=== PATIENT | female | born 1950 | race Caucasian/White ===

== ENCOUNTER 2019-02-28 15:55 | Inpatient (IN) ==
[2019-02-28 17:17] LABS: INR 0.9; Prothrombin Time 10.1 Seconds (9.4-12.1)
[2019-02-28 17:18] LABS: Hematocrit 40.6 % (35.3-44.9); Hemoglobin 13.9 g/dL (11.5-15.4); Mean Corpuscular HGB Conc 34.2 g/dL (31.6-35.5); Mean Corpuscular Hemoglobin 28.8 pg (28.0-33.3); Mean Corpuscular Volume 84.2 fL (83.0-100.0); Mean Platelet Volume 10.4 fL (9.4-12.4); Platelet Count 339 K/mcL (140-400); Red Blood Count 4.82 M/mcL (3.82-4.97); Red Cell Distribution Width 12.1 % (11.5-14.5); White Blood Count 8.2 K/mcL (4.3-11.1)
[2019-02-28 17:32] LABS: BUN/Creatinine Ratio 17 (6-26); Blood Urea Nitrogen 16 mg/dL (8-23); Calcium 9.9 mg/dL (8.6-10.3); Carbon Dioxide 23 mEq/L (23-29); Chloride 101 mEq/L (98-107); Glucose 90 mg/dL (70-105); Osmolality,Calculated 283 (280-300); Potassium 4.5 mEq/L (3.5-5.1); Sodium 136 mEq/L (136-145); Troponin I < 0.03 ng/mL (< 0.04); eGFR For African Americans > 60 (> 60); eGFR For Non-African Americans 59 (> 60)
[2019-02-28] MEDS ORDERED: Ondansetron 4 MG/2 ML VIAL IVP PRN (18:23)
[2019-02-28] MEDS ORDERED: Benzonatate 100 MG CAPSULE PO PRN (18:32)
[2019-02-28 23:28] LABS: Bilirubin,Urine Negative (Negative); Blood,Urine Negative (Negative); Clarity,Urine Clear (Clear); Color,Urine Yellow (Yellow); Glucose,Urine (UA) Normal (Normal); Ketones,Urine Trace mg/dL (Negative); Leukocyte Esterase,Urine Negative (Negative); Nitrite,Urine Negative (Negative); Protein,Urine Negative (Neg-Trace); Specific Gravity,Urine 1.015 (1.010-1.025); Urobilinogen,Urine Normal (Normal)
[2019-03-01 03:22] LABS: Alanine Aminotransferase 12 Units/L (7-52); Albumin 4.3 g/dL (3.5-5.7); Albumin/Globulin Ratio 1.5 (1.1-2.2); Alkaline Phosphatase 90 Units/L (34-104); Aspartate Amino Transferase 14 Units/L (13-39); BUN/Creatinine Ratio 18 (6-26); Bilirubin,Total 0.4 mg/dL (0.3-1.0); Blood Urea Nitrogen 17 mg/dL (8-23); Calcium 9.9 mg/dL (8.6-10.3); Carbon Dioxide 24 mEq/L (23-29); Chloride 101 mEq/L (98-107); Chol/HDL Ratio 3.3 (0-4.9); Cholesterol 187 mg/dL (< 200); Globulin 2.8 g/dL (2.4-3.5); Glucose 98 mg/dL (70-105); HDL Cholesterol 56 mg/dL (40-59); LDL Cholesterol,Calculated 109 mg/dL (0-99); Osmolality,Calculated 284 (280-300); Potassium 3.8 mEq/L (3.5-5.1); Sodium 136 mEq/L (136-145); Total Protein 7.1 g/dL (6.4-8.9); Triglycerides 109 mg/dL (< 150); eGFR For African Americans > 60 (> 60); eGFR For Non-African Americans 57 (> 60)
[2019-03-01] MEDS: Aspirin Enteric Coated 81 MG Tablet PO SCH (08:56)
[2019-03-01] MEDS: hydrOXYzine pamoate 25 MG CAPSULE PO SCH (08:56)
[2019-03-01] MEDS: Acetaminophen 325 MG TABLET PO PRN ×4 (08:56→22:15)
[2019-03-01] MEDS: *HR* Enoxaparin 40 MG/0.4 ML SYRINGE SQ SCH (13:58)
[2019-03-02 06:54] VITALS: BP 141/94
[2019-03-02 08:14] LABS: Estimated Average Glucose 134 mg/dl
[2019-03-02] MEDS: Acetaminophen 325 MG TABLET PO PRN ×2 (08:15→12:49)
[2019-03-02] MEDS: hydrOXYzine pamoate 25 MG CAPSULE PO SCH (09:46)
[2019-03-02] MEDS: Aspirin Enteric Coated 81 MG Tablet PO SCH (09:47)
[2019-03-02] MEDS: *HR* Enoxaparin 40 MG/0.4 ML SYRINGE SQ SCH (09:47)
== END 2019-03-02 14:49 | disposition home or self-care (01) | DRG 66 ==
LOC: 2NENU 15:55 → EMEROOARM 15:55 → OBSVTOIN 18:17 → SUATTDRO 18:17 → INTOOBSV 18:17 → 2NENU 20:31
PROVIDERS: ADMIT Internal Medicine; ATTEND Internal Medicine

== ENCOUNTER 2019-03-19 11:16 | Inpatient (IN) ==
[~2019-03-19 11:16] MED LIST: Vancomycin 1,000 MG, Sodium Chloride IRRigation 1,000 ML IR ONE
[2019-03-19] MEDS ORDERED: *HR* Propofol 200 MG/20 ML VIAL IVP ONE ×2 (11:34→15:35)
[2019-03-19] MEDS ORDERED: *HR* FentaNYL (PF) 100 MCG/2 ML VIAL ONE (11:34)
[2019-03-19] MEDS ORDERED: *HR* Succinylcholine 200 MG/10 ML VIAL IVP ONE (11:35)
[2019-03-19] MEDS ORDERED: Lidocaine HCL 4 ML Topical Solution (Laryng-O-Jet Kit Sterile Pak) TP ONE (11:35)
[2019-03-19] MEDS ORDERED: Dexamethasone 4 MG/ML VIAL ONE (11:35)
[2019-03-19] MEDS ORDERED: Lidocaine -MPF 2% 2 ML VIAL ONE (11:35)
[2019-03-19] MEDS ORDERED: Ondansetron 4 MG/2 ML VIAL ONE ×2 (11:35→15:18)
[2019-03-19] MEDS ORDERED: CeFAZolin Syr 2,000MG/20 ML 2,000 MG/20 ML SYRINGE IVPB ONE (11:36)
[2019-03-19] MEDS ORDERED: Heparin 1,000 UNITS/500 mL 500 ML ONE (11:44)
[2019-03-19] MEDS ORDERED: Ringers Solution, Lactated 1,000 ML IVC SCH (11:45)
[2019-03-19] MEDS ORDERED: *HR* Phenylephrine 10 MG/ML VIAL ONE (11:46)
[2019-03-19] MEDS ORDERED: *HR* Remifentanil 1 MG VIAL IVP ONE (11:49)
[2019-03-19] MEDS ORDERED: Bupivacaine-MPF 0.25% 10 ML VIAL ONE (12:13)
[2019-03-19] MEDS ORDERED: Protamine Sulfate 50 MG/5 ML VIAL IVP ONE (12:13)
[2019-03-19] MEDS ORDERED: Heparin 1,000 UNITS/500 mL 0 ML ONE (12:13)
[2019-03-19] MEDS ORDERED: Gabapentin 100 MG CAPSULE PO ONE (12:15)
[2019-03-19] MEDS ORDERED: Ondansetron 4 MG/2 ML VIAL IVP ONE (12:15)
[2019-03-19] MEDS ORDERED: Acetaminophen IV 1,000 MG/100 ML INFUS..BTL IVPB ONE (12:15)
[2019-03-19] MEDS ORDERED: *HR* Labetalol 20 MG/4 ML SYRINGE IVP PRN (12:15)
[2019-03-19] MEDS ORDERED: *HR* HYDROmorphone 2 MG/ML SYRINGE IVP PRN (12:15)
[2019-03-19] MEDS ORDERED: *HR* OxyCODONE Immed Rel 5 MG TABLET PO PRN ×3 (12:15→17:32)
[2019-03-19] MEDS ORDERED: Lidocaine 1% 20 ML MDV ONE (12:38)
[2019-03-19] MEDS ORDERED: Vancomycin 1,000 MG VIAL ONE (13:18)
[2019-03-19] MEDS ORDERED: *HR* Heparin 5,000 UNIT/ML VIAL ONE (13:27)
[2019-03-19] MEDS ORDERED: EPHEDrine 50 MG/ML VIAL ONE (13:36)
[2019-03-19] MEDS ORDERED: 0.9 % Sodium Chloride 1,000 ML IVC SCH ×2 (17:32)
[2019-03-19] MEDS ORDERED: *HR* HYDROcodone/Acet 5/325 mg TABLET PO PRN (17:32)
[2019-03-19] MEDS ORDERED: Ondansetron 4 MG/2 ML VIAL IVP PRN (17:32)
[2019-03-19] MEDS ORDERED: Acetaminophen 325 MG TABLET PO PRN (17:32)
[2019-03-19] MEDS ORDERED: Naloxone 0.4 MG/ML INJ IVP PRN (17:32)
[2019-03-19] MEDS: *HR* Metoprolol 5 MG/5 ML VIAL IVP SCH ×2 (19:19→23:52)
[2019-03-19] MEDS: *HR* HYDROcodone/Acet 5/325 mg TABLET PO PRN (21:30)
[2019-03-20] MEDS: *HR* Metoprolol 5 MG/5 ML VIAL IVP SCH (05:34)
[2019-03-20] MEDS: *HR* HYDROcodone/Acet 5/325 mg TABLET PO PRN ×2 (05:34→18:17)
[2019-03-20] MEDS: *HR* Heparin 5,000 UNIT/ML VIAL SQ SCH ×2 (05:34→17:23)
[2019-03-20] MEDS ORDERED: *HR* Heparin 5,000 UNIT/ML VIAL SQ SCH (06:00)
[2019-03-20] MEDS ORDERED: 0.9 % Sodium Chloride 500 ML IV ONE (08:15)
[2019-03-20 09:39] LABS: Basophils % 0.2 %; Hematocrit 31.3 % (35.3-44.9); Immature Granulocytes % 0.5 % (0-4); Lymphocytes # 1.4 K/mcL (0.6-4.6); Mean Corpuscular HGB Conc 32.9 g/dL (31.6-35.5); Mean Corpuscular Hemoglobin 28.5 pg (28.0-33.3); Mean Corpuscular Volume 86.5 fL (83.0-100.0); Mean Platelet Volume 10.4 fL (9.4-12.4); Monocytes # 1.3 K/mcL (0.0-1.3); Monocytes % 7.5 %; Platelet Count 295 K/mcL (140-400); Red Blood Count 3.62 M/mcL (3.82-4.97); Red Cell Distribution Width 12.6 % (11.5-14.5); Segmented Neutrophils % 83.8 %
[2019-03-20 09:46] LABS: VBG Ionized Calcium 1.11 mmol/L (1.15-1.35); VBG PH 7.29 pH Units (7.32-7.42)
[2019-03-20 09:51] LABS: BUN/Creatinine Ratio 22 (6-26); Blood Urea Nitrogen 16 mg/dL (8-23); Calcium 8.7 mg/dL (8.6-10.3); Carbon Dioxide 22 mEq/L (23-29); Chloride 103 mEq/L (98-107); Glucose 116 mg/dL (70-105); Magnesium 1.4 mg/dL (1.6-2.6); Osmolality,Calculated 282 (280-300); Potassium 4.7 mEq/L (3.5-5.1); Sodium 135 mEq/L (136-145); eGFR For African Americans > 60 (> 60); eGFR For Non-African Americans > 60 (> 60)
[2019-03-20] MEDS ORDERED: Calcium Chloride 1,000 MG in 0.9 % Sodium Chloride 100 ML IVPB ONE (10:04)
[2019-03-20 10:06] LABS: Hemoglobin 10.3 g/dL (11.5-15.4); Neutrophils # 14.8 K/mcL (1.6-8.9); White Blood Count 17.7 K/mcL (4.3-11.1)
[2019-03-20] MEDS ORDERED: Calcium Gluconate 1gm/50mL 1 GM/50 ML BAG IVPB ONE (10:45)
[2019-03-21] MEDS: *HR* HYDROcodone/Acet 5/325 mg TABLET PO PRN (00:24)
[2019-03-21] MEDS: *HR* Labetalol 20 MG/4 ML SYRINGE IVP PRN ×3 (00:28→20:22)
[2019-03-21] MEDS: *HR* Heparin 5,000 UNIT/ML VIAL SQ SCH (04:55)
[2019-03-21] MEDS: amLODIPine 5 MG TABLET PO SCH (13:41)
[2019-03-21] MEDS: Acetaminophen 325 MG TABLET PO PRN (15:30)
[2019-03-21] MEDS: Ondansetron 4 MG/2 ML VIAL IVP PRN (17:47)
[2019-03-21] MEDS: FISH OIL PO SCH (20:28)
[2019-03-21] MEDS: OMEGA PO SCH (20:28)
[2019-03-21] MEDS: EPA PO SCH (20:28)
[2019-03-21] MEDS: DHA PO SCH (20:28)
[2019-03-21] MEDS ORDERED: PROPRANOLOL HCL 80 MG PO SCH (21:00)
[2019-03-22] MEDS: Ondansetron 4 MG/2 ML VIAL IVP PRN (00:41)
[2019-03-22 00:45] LABS: VBG Ionized Calcium 1.17 mmol/L (1.15-1.35)
[2019-03-22 00:56] LABS: BUN/Creatinine Ratio 20 (6-26); Blood Urea Nitrogen 11 mg/dL (8-23); Calcium 9.1 mg/dL (8.6-10.3); Carbon Dioxide 27 mEq/L (23-29); Chloride 92 mEq/L (98-107); Glucose 103 mg/dL (70-105); Magnesium 1.7 mg/dL (1.6-2.6); Osmolality,Calculated 260 (280-300); Sodium 125 mEq/L (136-145); eGFR For African Americans > 60 (> 60); eGFR For Non-African Americans > 60 (> 60)
[2019-03-22 01:07] LABS: Prothrombin Time 10.9 Seconds (9.4-12.1)
[2019-03-22 01:10] LABS: Activated Partial Thrombo Time 28.2 Seconds (26.0-36.0)
[2019-03-22] MEDS: Acetaminophen 325 MG TABLET PO PRN (05:45)
[2019-03-22] MEDS ORDERED: amLODIPine 5 MG TABLET PO SCH ×2 (09:00→13:02)
[2019-03-22] MEDS ORDERED: Budesonide/Formoterol 160/4.5 1 PUFF INH IH SCH (09:00)
[2019-03-22] MEDS: Multivit/Ca/Min/Fe/FA 1 TAB TABLET PO SCH (09:44)
[2019-03-22] MEDS: hydrOXYzine pamoate 25 MG CAPSULE PO SCH (09:44)
[2019-03-22] MEDS: amLODIPine 5 MG TABLET PO SCH (09:45)
[2019-03-22] MEDS: DHA PO SCH ×2 (09:45→20:56)
[2019-03-22] MEDS: OMEGA PO SCH ×2 (09:45→20:56)
[2019-03-22] MEDS: FISH OIL PO SCH ×2 (09:45→20:56)
[2019-03-22] MEDS: EPA PO SCH ×2 (09:45→20:56)
[2019-03-22 11:55] LABS: Eosinophils % 0.8 %
[2019-03-22 11:59] LABS: Basophils % 0.3 %; Eosinophils # 0.1 K/mcL (0.0-0.6); Hematocrit 30.6 % (35.3-44.9); Hemoglobin 10.9 g/dL (11.5-15.4); Immature Granulocytes % 0.8 % (0-4); Immature Platelets 4.6 % (1.1-6.1); Lymphocytes # 1.2 K/mcL (0.6-4.6); Lymphocytes % 12.9 %; Mean Corpuscular HGB Conc 35.6 g/dL (31.6-35.5); Mean Corpuscular Hemoglobin 29.5 pg (28.0-33.3); Mean Corpuscular Volume 82.7 fL (83.0-100.0); Mean Platelet Volume 10.4 fL (9.4-12.4); Monocytes % 10.9 %; Neutrophils # 6.9 K/mcL (1.6-8.9); Platelet Count 261 K/mcL (140-400); Red Cell Distribution Width 11.9 % (11.5-14.5); Segmented Neutrophils % 74.3 %; White Blood Count 9.3 K/mcL (4.3-11.1)
[2019-03-22] MEDS: Famotidine 20 MG TABLET PO SCH ×2 (12:19→21:06)
[2019-03-22] MEDS ORDERED: Ondansetron 4 MG/2 ML VIAL IVP PRN ×2 (13:04→13:06)
[2019-03-23 06:41] VITALS: BP 166/61
[2019-03-23] MEDS: hydrOXYzine pamoate 25 MG CAPSULE PO SCH (07:32)
[2019-03-23] MEDS: amLODIPine 5 MG TABLET PO SCH (07:32)
[2019-03-23] MEDS: Famotidine 20 MG TABLET PO SCH (07:32)
[2019-03-23] MEDS: Multivit/Ca/Min/Fe/FA 1 TAB TABLET PO SCH (07:32)
[2019-03-23] MEDS: OMEGA PO SCH (07:33)
[2019-03-23] MEDS: FISH OIL PO SCH (07:33)
[2019-03-23] MEDS: DHA PO SCH (07:33)
[2019-03-23] MEDS: EPA PO SCH (07:33)
== END 2019-03-23 09:31 | disposition home health service (06) | DRG 38 ==
LOC: SAMDAY 11:16 → 2NNU 17:34
PROVIDERS: ADMIT Surgery; ATTEND Surgery

== ENCOUNTER 2019-06-24 17:35 | Inpatient (IN) ==
[2019-06-24 18:29] LABS: Basophils # 0.1 K/mcL (0.0-0.2); Eosinophils # 1.4 K/mcL (0.0-0.6); Hematocrit 40.1 % (35.3-44.9); Hemoglobin 12.6 g/dL (11.5-15.4); Immature Granulocytes % 0.7 % (0-4); Lymphocytes # 2.3 K/mcL (0.6-4.6); Lymphocytes % 23.1 %; Mean Corpuscular HGB Conc 31.4 g/dL (31.6-35.5); Mean Corpuscular Hemoglobin 26.7 pg (28.0-33.3); Mean Platelet Volume 9.9 fL (9.4-12.4); Monocytes # 0.8 K/mcL (0.0-1.3); Monocytes % 8.1 %; Neutrophils # 5.2 K/mcL (1.6-8.9); Platelet Count 408 K/mcL (140-400); Red Blood Count 4.72 M/mcL (3.82-4.97); Red Cell Distribution Width 13.2 % (11.5-14.5); Segmented Neutrophils % 53.1 %; White Blood Count 9.9 K/mcL (4.3-11.1)
[2019-06-24 18:45] LABS: BUN/Creatinine Ratio 19 (6-26); Blood Urea Nitrogen 16 mg/dL (8-23); Calcium 10.1 mg/dL (8.6-10.3); Carbon Dioxide 27 mEq/L (23-29); Chloride 100 mEq/L (98-107); Glucose 110 mg/dL (70-105); Osmolality,Calculated 286 (280-300); Potassium 3.8 mEq/L (3.5-5.1); Sodium 137 mEq/L (136-145); Troponin I < 0.03 ng/mL (< 0.04); eGFR For African Americans > 60 (> 60); eGFR For Non-African Americans > 60 (> 60)
[2019-06-24] MEDS ORDERED: Naloxone 0.4 MG/ML INJ IVP PRN (19:38)
[2019-06-24] MEDS ORDERED: NON-FORMULARY MEDICATION 1 EACH EACH (Omega-3/Dha/Epa/Fish Oil [Fish Oil 1,000 Mg Softgel] PO SCH (21:00)
[2019-06-25] MEDS: Acetaminophen 325 MG TABLET PO PRN ×3 (01:21→18:50)
[2019-06-25 05:50] LABS: Basophils # 0.1 K/mcL (0.0-0.2); Eosinophils % 9.3 %; Hematocrit 37.4 % (35.3-44.9); Hemoglobin 11.9 g/dL (11.5-15.4); Immature Granulocytes % 0.4 % (0-4); Lymphocytes # 2.5 K/mcL (0.6-4.6); Lymphocytes % 23.5 %; Mean Corpuscular HGB Conc 31.8 g/dL (31.6-35.5); Mean Corpuscular Hemoglobin 26.8 pg (28.0-33.3); Mean Corpuscular Volume 84.2 fL (83.0-100.0); Mean Platelet Volume 10.1 fL (9.4-12.4); Monocytes # 1.1 K/mcL (0.0-1.3); Platelet Count 364 K/mcL (140-400); Red Blood Count 4.44 M/mcL (3.82-4.97); Red Cell Distribution Width 13.3 % (11.5-14.5); Segmented Neutrophils % 55.8 %; White Blood Count 10.7 K/mcL (4.3-11.1)
[2019-06-25 06:11] LABS: BUN/Creatinine Ratio 20 (6-26); Blood Urea Nitrogen 17 mg/dL (8-23); Calcium 10.1 mg/dL (8.6-10.3); Carbon Dioxide 27 mEq/L (23-29); Chloride 103 mEq/L (98-107); Glucose 93 mg/dL (70-105); Osmolality,Calculated 285 (280-300); Potassium 4.1 mEq/L (3.5-5.1); Sodium 137 mEq/L (136-145); eGFR For African Americans > 60 (> 60); eGFR For Non-African Americans > 60 (> 60)
[2019-06-25] MEDS: hydrOXYzine pamoate 25 MG CAPSULE PO SCH (08:40)
[2019-06-25] MEDS: Multivit/Ca/Min/Fe/FA 1 TAB TABLET PO SCH (08:40)
[2019-06-25] MEDS: lisinopriL 10 MG TABLET PO SCH (08:40)
[2019-06-25] MEDS: Aspirin Enteric Coated 81 MG Tablet PO SCH (08:40)
[2019-06-25] MEDS ORDERED: amLODIPine 5 MG TABLET PO SCH (09:00)
[2019-06-25] MEDS: 0.9 % Sodium Chloride 1,000 ML IVC SCH (17:15)
[2019-06-25] MEDS: *HR* Heparin 5,000 UNIT/ML VIAL SQ SCH (19:17)
[2019-06-26] MEDS: Acetaminophen 325 MG TABLET PO PRN ×2 (01:07→17:11)
[2019-06-26] MEDS ORDERED: *HR* Labetalol 20 MG/4 ML SYRINGE IVP ONE (03:14)
[2019-06-26] MEDS: 0.9 % Sodium Chloride 1,000 ML IVC SCH (05:05)
[2019-06-26] MEDS: *HR* Heparin 5,000 UNIT/ML VIAL SQ SCH ×2 (05:05→17:11)
[2019-06-26] MEDS: Multivit/Ca/Min/Fe/FA 1 TAB TABLET PO SCH (08:13)
[2019-06-26] MEDS: Aspirin Enteric Coated 81 MG Tablet PO SCH (08:13)
[2019-06-26] MEDS: hydrOXYzine pamoate 25 MG CAPSULE PO SCH (08:13)
[2019-06-26] MEDS: lisinopriL 10 MG TABLET PO SCH (08:13)
[2019-06-26] MEDS ORDERED: 0.9 % Sodium Chloride 1,000 ML IVC SCH (12:00)
[2019-06-26] MEDS ORDERED: lisinopriL 10 MG TABLET PO ONE (12:09)
[2019-06-27] MEDS: *HR* Heparin 5,000 UNIT/ML VIAL SQ SCH ×2 (05:27→18:14)
[2019-06-27] MEDS: Multivit/Ca/Min/Fe/FA 1 TAB TABLET PO SCH (07:13)
[2019-06-27] MEDS: Aspirin Enteric Coated 81 MG Tablet PO SCH (07:13)
[2019-06-27] MEDS: hydrOXYzine pamoate 25 MG CAPSULE PO SCH (07:13)
[2019-06-27] MEDS: lisinopriL 20 MG TABLET PO SCH (07:14)
[2019-06-27] MEDS: Acetaminophen 325 MG TABLET PO PRN (22:22)
[2019-06-28] MEDS: *HR* Heparin 5,000 UNIT/ML VIAL SQ SCH ×2 (04:54→17:08)
[2019-06-28] MEDS: lisinopriL 20 MG TABLET PO SCH (07:56)
[2019-06-28] MEDS: Multivit/Ca/Min/Fe/FA 1 TAB TABLET PO SCH (07:56)
[2019-06-28] MEDS: hydrOXYzine pamoate 25 MG CAPSULE PO SCH (07:56)
[2019-06-28] MEDS: Aspirin Enteric Coated 81 MG Tablet PO SCH (07:56)
[2019-06-28 08:02] LABS: Hematocrit 37.8 % (35.3-44.9); Hemoglobin 12.3 g/dL (11.5-15.4); Mean Corpuscular HGB Conc 32.5 g/dL (31.6-35.5); Mean Corpuscular Hemoglobin 27.3 pg (28.0-33.3); Mean Corpuscular Volume 83.8 fL (83.0-100.0); Mean Platelet Volume 9.7 fL (9.4-12.4); Platelet Count 383 K/mcL (140-400); Red Blood Count 4.51 M/mcL (3.82-4.97); Red Cell Distribution Width 13.6 % (11.5-14.5); White Blood Count 10.8 K/mcL (4.3-11.1)
[2019-06-28] MEDS: Acetaminophen 325 MG TABLET PO PRN (15:07)
[2019-06-28 22:15] LABS: Bilirubin,Urine Negative (Negative); Blood,Urine Negative (Negative); Clarity,Urine Clear (Clear); Color,Urine Yellow (Yellow); Glucose,Urine (UA) Normal (Normal); Ketones,Urine Negative (Negative); Leukocyte Esterase,Urine Moderate (Negative); Nitrite,Urine Negative (Negative); Protein,Urine Negative (Neg-Trace); Specific Gravity,Urine 1.019 (1.010-1.025); Urobilinogen,Urine Normal (Normal)
[2019-06-28 22:16] LABS: Bacteria,Urine None Seen per hpf (None-Few); Hyaline Casts,Urine None Seen per lpf (None-Few); RBC,Urine 0-3 per hpf (0-3); Squamous Epithelial Cell,Urine Moderate per lpf (None-Few); WBC,Urine 50-100 per hpf (0-3)
[2019-06-29] MEDS: *HR* Heparin 5,000 UNIT/ML VIAL SQ SCH (04:56)
[2019-06-29] MEDS: Aspirin Enteric Coated 81 MG Tablet PO SCH (08:08)
[2019-06-29] MEDS: Multivit/Ca/Min/Fe/FA 1 TAB TABLET PO SCH (08:09)
[2019-06-29] MEDS: lisinopriL 20 MG TABLET PO SCH (08:09)
[2019-06-29] MEDS: hydrOXYzine pamoate 25 MG CAPSULE PO SCH (08:09)
[2019-06-29 11:41] VITALS: BP 115/67
== END 2019-06-29 12:54 | DRG 312 ==
LOC: 3BNU 17:35 → EMEROOARM 17:35 → SUATTDRO 19:40 → 3BNU 20:15
PROVIDERS: ADMIT Internal Medicine; ATTEND Internal Medicine

== ENCOUNTER 2019-08-15 14:09 | Inpatient (IN) ==
[2019-08-15] MEDS ORDERED: 0.9 % Sodium Chloride 1,000 ML ONE (14:29)
[2019-08-15] MEDS ORDERED: Piperacillin/Tazobactam 3.375 GM in Water for inj. (sterile) 20 ML IVP ONE (14:30)
[2019-08-15] MEDS ORDERED: Isovue-370 500 ML BOTTLE IVP ONE (14:38)
[2019-08-15] MEDS: 0.9 % Sodium Chloride 1,000 ML IVC SCH ×2 (14:41→15:37)
[2019-08-15 15:13] LABS: Prothrombin Time 11.5 Seconds (9.4-12.1)
[2019-08-15 15:16] LABS: Activated Partial Thrombo Time 25.2 Seconds (26.0-36.0)
[2019-08-15 15:18] LABS: Basophils # 0.1 K/mcL (0.0-0.2); Basophils % 0.4 %; Eosinophils # 0.4 K/mcL (0.0-0.6); Eosinophils % 1.9 %; Hematocrit 37.8 % (35.3-44.9); Hemoglobin 12.2 g/dL (11.5-15.4); Immature Granulocytes % 1.1 % (0-4); Lymphocytes # 1.4 K/mcL (0.6-4.6); Mean Corpuscular HGB Conc 32.3 g/dL (31.6-35.5); Mean Corpuscular Hemoglobin 26.6 pg (28.0-33.3); Mean Corpuscular Volume 82.4 fL (83.0-100.0); Mean Platelet Volume 10.7 fL (9.4-12.4); Monocytes # 1.8 K/mcL (0.0-1.3); Neutrophils # 16.4 K/mcL (1.6-8.9); Platelet Count 414 K/mcL (140-400); Red Blood Count 4.59 M/mcL (3.82-4.97); Segmented Neutrophils % 80.6 %; White Blood Count 20.4 K/mcL (4.3-11.1)
[2019-08-15 15:21] LABS: Alanine Aminotransferase 14 Units/L (7-52); Albumin 3.5 g/dL (3.5-5.7); Albumin/Globulin Ratio 1.2 (1.1-2.2); Alkaline Phosphatase 110 Units/L (34-104); Aspartate Amino Transferase 18 Units/L (13-39); BUN/Creatinine Ratio 30 (6-26); Bilirubin,Direct 0.1 mg/dL (0.0-0.2); Bilirubin,Indirect 0.3 mg/dL (0.0-1.0); Bilirubin,Total 0.4 mg/dL (0.3-1.0); Blood Urea Nitrogen 68 mg/dL (8-23); Calcium 9.4 mg/dL (8.6-10.3); Carbon Dioxide 24 mEq/L (23-29); Chloride 95 mEq/L (98-107); Globulin 2.9 g/dL (2.4-3.5); Glucose 117 mg/dL (70-105); Magnesium 2.2 mg/dL (1.6-2.6); Osmolality,Calculated 291 (280-300); Phosphorous 3.1 mg/dL (2.7-4.5); Potassium 3.8 mEq/L (3.5-5.1); Sodium 130 mEq/L (136-145); Total Protein 6.4 g/dL (6.4-8.9); Troponin I < 0.03 ng/mL (< 0.04); eGFR For African Americans 26 (> 60); eGFR For Non-African Americans 21 (> 60)
[2019-08-15 15:48] LABS: Platelet Estimate Increased (Normal); Reactive Lymphocytes Present (Not Present); Toxic Granulation Present (Not Present)
[2019-08-15] MEDS ORDERED: 0.9 % Sodium Chloride 1,000 ML IVC ONE (16:49)
[2019-08-15] MEDS ORDERED: Ondansetron 4 MG/2 ML VIAL IVP PRN (16:59)
[2019-08-15] MEDS ORDERED: Naloxone 0.4 MG/ML INJ IVP PRN ×2 (16:59→17:03)
[2019-08-15] MEDS ORDERED: Ringers Solution, Lactated 1,000 ML IVC SCH (17:00)
[2019-08-15] MEDS: *HR* Heparin 5,000 UNIT/ML VIAL SQ SCH (18:58)
[2019-08-15 20:18] LABS: Adenovirus F 40/41 PCR Not detected (Not detect); Astrovirus PCR Not detected (Not detect); Campylobacter by PCR Not detected (Not detect); Cryptosporidium by PCR Not detected (Not detect); Cyclospora cayetanensis PCR Not detected (Not detect); E. coli O157 by PCR Not detected (Not detect); Entamoeba histolytica PCR Not detected (Not detect); Enteroaggregative E.coli(EAEC) Not detected (Not detect); Enteropathogenic E.coli(EPEC) Not detected (Not detect); Enterotoxigenic E.coli (ETEC) Not detected (Not detect); Giardia lamblia PCR Not detected (Not detect); Norovirus GI/GII PCR Not detected (Not detect); Plesiomonas shigelloides PCR Not detected (Not detect); Rotavirus A PCR Not detected (Not detect); Salmonella PCR Not detected (Not detect); Sapovirus PCR Not detected (Not detect); Shig/EnteroinvasiveE coli EIEC Not detected (Not detect); Shigalike tox-prod E coli STEC Not detected (Not detect); Vibrio PCR Not detected (Not detect); Vibrio cholerae PCR Not detected (Not detect); Yersinia enterocolitica PCR Not detected (Not detect)
[2019-08-15 20:21] LABS: C.difficile Toxin A/B Gene PCR DETECTED (Not detect)
[2019-08-15] MEDS ORDERED: Piperacillin/Tazobactam 3.375 GM in 0.9 % Sodium Chloride Mini Bag 100 ML IVPB SCH (21:00)
[2019-08-15] MEDS ORDERED: Dextrose Gel 15 GM/37.5 ML TUBE PO ONE (23:29)
[2019-08-16] MEDS ORDERED: Dextrose Gel 15 GM/37.5 ML TUBE PO ONE ×2 (05:36→06:07)
[2019-08-16 05:45] LABS: Hematocrit 31.8 % (35.3-44.9); Mean Corpuscular HGB Conc 32.1 g/dL (31.6-35.5); Mean Corpuscular Hemoglobin 26.5 pg (28.0-33.3); Mean Corpuscular Volume 82.6 fL (83.0-100.0); Platelet Count 356 K/mcL (140-400); Red Blood Count 3.85 M/mcL (3.82-4.97); Red Cell Distribution Width 15.2 % (11.5-14.5); White Blood Count 17.9 K/mcL (4.3-11.1)
[2019-08-16 05:46] LABS: Hemoglobin 10.2 g/dL (11.5-15.4)
[2019-08-16] MEDS: *HR* Heparin 5,000 UNIT/ML VIAL SQ SCH ×2 (05:46→17:03)
[2019-08-16 06:03] LABS: Calcium 8.4 mg/dL (8.6-10.3); Magnesium 1.8 mg/dL (1.6-2.6); Phosphorous 2.4 mg/dL (2.7-4.5); Potassium 4.1 mEq/L (3.5-5.1)
[2019-08-16] MEDS ORDERED: *HR* Dextrose 50 % in Water (Syg) 50 ML SYRINGE IVP PRN (06:12)
[2019-08-16] MEDS ORDERED: D5% in Water 1,000 ML IVC PRN (06:12)
[2019-08-16] MEDS ORDERED: Ringers Solution, Lactated 1,000 ML IVC SCH (09:06)
[2019-08-16] MEDS: Piperacillin/Tazobactam 3.375 GM in 0.9 % Sodium Chloride Mini Bag 100 ML IVPB SCH ×3 (10:06→23:44)
[2019-08-16] MEDS: Vancomycin Oral Soln 125 MG/2.5 ML UDC PO SCH ×4 (11:37→21:02)
[2019-08-16] MEDS: Aspirin Enteric Coated 81 MG Tablet PO SCH (11:37)
[2019-08-16] MEDS: 0.9 % Sodium Chloride 1,000 ML IVC SCH ×2 (11:48→21:04)
[2019-08-17 04:52] LABS: Bilirubin,Urine Negative (Negative); Blood,Urine Trace (Negative); Clarity,Urine Clear (Clear); Color,Urine Yellow (Yellow); Glucose,Urine (UA) Normal (Normal); Ketones,Urine Negative (Negative); Leukocyte Esterase,Urine Negative (Negative); Nitrite,Urine Negative (Negative); PH,Urine 5.5 pH Units (5.0-8.0); Protein,Urine 30 mg/dL (Neg-Trace); Urobilinogen,Urine Normal (Normal)
[2019-08-17 04:55] LABS: Bacteria,Urine None Seen per hpf (None-Few); Hyaline Casts,Urine None Seen per lpf (None-Few); Squamous Epithelial Cell,Urine Moderate per lpf (None-Few); WBC,Urine 0-3 per hpf (0-3)
[2019-08-17] MEDS: *HR* Heparin 5,000 UNIT/ML VIAL SQ SCH ×2 (06:19→18:08)
[2019-08-17 07:26] LABS: Hematocrit 31.4 % (35.3-44.9); Hemoglobin 10.1 g/dL (11.5-15.4); Mean Corpuscular HGB Conc 32.2 g/dL (31.6-35.5); Mean Corpuscular Hemoglobin 26.6 pg (28.0-33.3); Mean Corpuscular Volume 82.6 fL (83.0-100.0); Mean Platelet Volume 10.3 fL (9.4-12.4); Platelet Count 374 K/mcL (140-400); Red Cell Distribution Width 15.3 % (11.5-14.5)
[2019-08-17 07:44] LABS: Alanine Aminotransferase 16 Units/L (7-52); Albumin 2.7 g/dL (3.5-5.7); Albumin/Globulin Ratio 1.2 (1.1-2.2); Alkaline Phosphatase 97 Units/L (34-104); Aspartate Amino Transferase 19 Units/L (13-39); BUN/Creatinine Ratio 26 (6-26); Bilirubin,Direct 0.1 mg/dL (0.0-0.2); Bilirubin,Indirect 0.4 mg/dL (0.0-1.0); Bilirubin,Total 0.5 mg/dL (0.3-1.0); Blood Urea Nitrogen 18 mg/dL (8-23); Calcium 7.8 mg/dL (8.6-10.3); Carbon Dioxide 21 mEq/L (23-29); Chloride 110 mEq/L (98-107); Globulin 2.3 g/dL (2.4-3.5); Glucose 76 mg/dL (70-105); Osmolality,Calculated 283 (280-300); Potassium 3.2 mEq/L (3.5-5.1); Sodium 136 mEq/L (136-145); eGFR For African Americans > 60 (> 60); eGFR For Non-African Americans > 60 (> 60)
[2019-08-17 08:12] LABS: Lymphocytes # 1.3 K/mcL (0.6-4.6); Monocytes # 0.9 K/mcL (0.0-1.3); Neutrophils # 19.8 K/mcL (1.6-8.9)
[2019-08-17 08:13] LABS: Platelet Estimate Normal (Normal)
[2019-08-17] MEDS: Piperacillin/Tazobactam 3.375 GM in 0.9 % Sodium Chloride Mini Bag 100 ML IVPB SCH (08:41)
[2019-08-17] MEDS: 0.9 % Sodium Chloride 1,000 ML IVC SCH (08:41)
[2019-08-17] MEDS: Aspirin Enteric Coated 81 MG Tablet PO SCH (08:42)
[2019-08-17] MEDS: Vancomycin Oral Soln 125 MG/2.5 ML UDC PO SCH ×4 (08:42→21:19)
[2019-08-17] MEDS: 0.9 % Sodium Chloride w KCl 40 MEQ/1,000 ML MLS IVC SCH (13:16)
[2019-08-17] MEDS: MetroNIDAZOLE 500 MG/100 ML 500 MG/100 ML BAG IVPB SCH ×2 (15:21→23:35)
[2019-08-18 02:29] LABS: Hemoglobin 10.1 g/dL (11.5-15.4); Mean Platelet Volume 10.2 fL (9.4-12.4); Nucleated Red Blood Cells 0.1 /100 WBC (0)
[2019-08-18 02:31] LABS: Hematocrit 30.9 % (35.3-44.9); Lymphocytes # 1.7 K/mcL (0.6-4.6); Mean Corpuscular HGB Conc 32.7 g/dL (31.6-35.5); Mean Corpuscular Hemoglobin 27.1 pg (28.0-33.3); Mean Corpuscular Volume 82.8 fL (83.0-100.0); Platelet Count 398 K/mcL (140-400); Red Blood Count 3.73 M/mcL (3.82-4.97); Red Cell Distribution Width 15.3 % (11.5-14.5); White Blood Count 28.2 K/mcL (4.3-11.1)
[2019-08-18 02:41] LABS: BUN/Creatinine Ratio 19 (6-26); Blood Urea Nitrogen 10 mg/dL (8-23); Carbon Dioxide 22 mEq/L (23-29); Chloride 105 mEq/L (98-107); Glucose 72 mg/dL (70-105); Magnesium 1.3 mg/dL (1.6-2.6); Osmolality,Calculated 280 (280-300); Phosphorous 1.4 mg/dL (2.7-4.5); Potassium 3.8 mEq/L (3.5-5.1); Sodium 136 mEq/L (136-145); eGFR For African Americans > 60 (> 60); eGFR For Non-African Americans > 60 (> 60)
[2019-08-18 03:26] LABS: Monocytes # 0.6 K/mcL (0.0-1.3); Neutrophils # 25.9 K/mcL (1.6-8.9); Platelet Estimate Normal (Normal)
[2019-08-18] MEDS: *HR* Heparin 5,000 UNIT/ML VIAL SQ SCH ×2 (06:02→17:03)
[2019-08-18] MEDS ORDERED: cefTRIAXone 1,000 MG in Water for inj. (sterile) 10 ML IVP SCH (09:00)
[2019-08-18] MEDS: 0.9 % Sodium Chloride w KCl 40 MEQ/1,000 ML MLS IVC SCH (09:24)
[2019-08-18] MEDS: MetroNIDAZOLE 500 MG/100 ML 500 MG/100 ML BAG IVPB SCH ×3 (09:25→23:14)
[2019-08-18] MEDS: Aspirin Enteric Coated 81 MG Tablet PO SCH (09:28)
[2019-08-18] MEDS: Vancomycin Oral Soln 125 MG/2.5 ML UDC PO SCH ×4 (09:28→23:12)
[2019-08-18] MEDS: cefTRIAXone 2,000 MG in Water for inj. (sterile) 20 ML IVP SCH (09:28)
[2019-08-18] MEDS ORDERED: *HR* Promethazine 25 MG/ML VIAL IVP PRN (11:29)
[2019-08-18] MEDS: Magic Mouthwash 10 ML UD Cup PO SCH (23:10)
[2019-08-18] MEDS: Acetaminophen 325 MG TABLET PO PRN (23:28)
[2019-08-19 06:16] LABS: Hematocrit 30.9 % (35.3-44.9); Hemoglobin 10.2 g/dL (11.5-15.4); Mean Corpuscular Volume 81.7 fL (83.0-100.0); Mean Platelet Volume 9.4 fL (9.4-12.4); Platelet Count 387 K/mcL (140-400); Red Blood Count 3.78 M/mcL (3.82-4.97); Red Cell Distribution Width 15.6 % (11.5-14.5); White Blood Count 24.4 K/mcL (4.3-11.1)
[2019-08-19] MEDS: *HR* Heparin 5,000 UNIT/ML VIAL SQ SCH ×2 (06:17→17:29)
[2019-08-19 06:36] LABS: Alanine Aminotransferase 21 Units/L (7-52); Albumin 2.7 g/dL (3.5-5.7); Albumin/Globulin Ratio 1.2 (1.1-2.2); Alkaline Phosphatase 100 Units/L (34-104); Aspartate Amino Transferase 21 Units/L (13-39); BUN/Creatinine Ratio 13 (6-26); Bilirubin,Direct 0.2 mg/dL (0.0-0.2); Bilirubin,Indirect 0.2 mg/dL (0.0-1.0); Bilirubin,Total 0.4 mg/dL (0.3-1.0); Blood Urea Nitrogen 8 mg/dL (8-23); Calcium 7.9 mg/dL (8.6-10.3); Carbon Dioxide 26 mEq/L (23-29); Chloride 103 mEq/L (98-107); Globulin 2.3 g/dL (2.4-3.5); Glucose 78 mg/dL (70-105); Osmolality,Calculated 275 (280-300); Potassium 3.6 mEq/L (3.5-5.1); Sodium 134 mEq/L (136-145); eGFR For African Americans > 60 (> 60); eGFR For Non-African Americans > 60 (> 60)
[2019-08-19 06:49] LABS: Lymphocytes # 3.4 K/mcL (0.6-4.6); Neutrophils # 18.1 K/mcL (1.6-8.9)
[2019-08-19 06:50] LABS: Platelet Estimate Normal (Normal)
[2019-08-19] MEDS: MetroNIDAZOLE 500 MG/100 ML 500 MG/100 ML BAG IVPB SCH ×3 (08:16→23:31)
[2019-08-19] MEDS: cefTRIAXone 2,000 MG in Water for inj. (sterile) 20 ML IVP SCH (08:21)
[2019-08-19] MEDS: Aspirin Enteric Coated 81 MG Tablet PO SCH (08:22)
[2019-08-19] MEDS: Magic Mouthwash 10 ML UD Cup PO SCH ×3 (08:22→15:55)
[2019-08-19] MEDS: Vancomycin Oral Soln 125 MG/2.5 ML UDC PO SCH ×4 (08:23→23:30)
[2019-08-19] MEDS: Acetaminophen 325 MG TABLET PO PRN ×4 (08:23→23:29)
[2019-08-19 08:53] LABS: Magnesium 1.7 mg/dL (1.6-2.6); Phosphorous 2.2 mg/dL (2.7-4.5)
[2019-08-19] MEDS: Loratadine 10 MG TABLET PO SCH (12:51)
[2019-08-19] MEDS ORDERED: Chloraseptic Spray 177 ML BOTTLE MM PRN (16:55)
[2019-08-20] MEDS: *HR* Heparin 5,000 UNIT/ML VIAL SQ SCH ×2 (06:12→17:42)
[2019-08-20] MEDS: cefTRIAXone 2,000 MG in Water for inj. (sterile) 20 ML IVP SCH (08:07)
[2019-08-20] MEDS: Magic Mouthwash 10 ML UD Cup PO SCH ×3 (08:07→15:37)
[2019-08-20] MEDS: Aspirin Enteric Coated 81 MG Tablet PO SCH (08:08)
[2019-08-20] MEDS: MetroNIDAZOLE 500 MG/100 ML 500 MG/100 ML BAG IVPB SCH ×2 (08:08→15:37)
[2019-08-20] MEDS: Loratadine 10 MG TABLET PO SCH (08:08)
[2019-08-20] MEDS: Vancomycin Oral Soln 125 MG/2.5 ML UDC PO SCH ×4 (08:09→21:58)
[2019-08-20] MEDS: Acetaminophen 325 MG TABLET PO PRN ×3 (08:17→21:58)
[2019-08-20 08:58] LABS: Hematocrit 31.8 % (35.3-44.9); Hemoglobin 10.7 g/dL (11.5-15.4); Mean Corpuscular HGB Conc 33.6 g/dL (31.6-35.5); Mean Corpuscular Hemoglobin 27.3 pg (28.0-33.3); Mean Corpuscular Volume 81.1 fL (83.0-100.0); Mean Platelet Volume 9.4 fL (9.4-12.4); Platelet Count 442 K/mcL (140-400); Red Blood Count 3.92 M/mcL (3.82-4.97); Red Cell Distribution Width 15.5 % (11.5-14.5); White Blood Count 21.3 K/mcL (4.3-11.1)
[2019-08-20 09:17] LABS: BUN/Creatinine Ratio 14 (6-26); Blood Urea Nitrogen 7 mg/dL (8-23); Calcium 8.1 mg/dL (8.6-10.3); Carbon Dioxide 26 mEq/L (23-29); Chloride 100 mEq/L (98-107); Glucose 86 mg/dL (70-105); Osmolality,Calculated 277 (280-300); Potassium 3.2 mEq/L (3.5-5.1); Sodium 135 mEq/L (136-145); eGFR For African Americans > 60 (> 60); eGFR For Non-African Americans > 60 (> 60)
[2019-08-21] MEDS: MetroNIDAZOLE 500 MG/100 ML 500 MG/100 ML BAG IVPB SCH ×2 (00:18→09:34)
[2019-08-21 04:36] LABS: Hematocrit 29.4 % (35.3-44.9); Hemoglobin 9.7 g/dL (11.5-15.4); Mean Corpuscular Hemoglobin 27.2 pg (28.0-33.3); Mean Corpuscular Volume 82.6 fL (83.0-100.0); Mean Platelet Volume 9.3 fL (9.4-12.4); Platelet Count 381 K/mcL (140-400); Red Blood Count 3.56 M/mcL (3.82-4.97); Red Cell Distribution Width 15.6 % (11.5-14.5); White Blood Count 14.5 K/mcL (4.3-11.1)
[2019-08-21 05:10] LABS: BUN/Creatinine Ratio 19 (6-26); Blood Urea Nitrogen 10 mg/dL (8-23); Calcium 8.1 mg/dL (8.6-10.3); Carbon Dioxide 26 mEq/L (23-29); Chloride 104 mEq/L (98-107); Glucose 89 mg/dL (70-105); Osmolality,Calculated 287 (280-300); Potassium 4.1 mEq/L (3.5-5.1); Sodium 139 mEq/L (136-145); eGFR For African Americans > 60 (> 60); eGFR For Non-African Americans > 60 (> 60)
[2019-08-21] MEDS: *HR* Heparin 5,000 UNIT/ML VIAL SQ SCH (05:22)
[2019-08-21] MEDS ORDERED: lisinopriL 10 MG TABLET PO SCH (09:00)
[2019-08-21] MEDS: Magic Mouthwash 10 ML UD Cup PO SCH ×2 (09:25→12:32)
[2019-08-21] MEDS: cefTRIAXone 2,000 MG in Water for inj. (sterile) 20 ML IVP SCH (09:35)
[2019-08-21] MEDS: Loratadine 10 MG TABLET PO SCH (09:36)
[2019-08-21] MEDS: Aspirin Enteric Coated 81 MG Tablet PO SCH (09:36)
[2019-08-21] MEDS: Vancomycin Oral Soln 125 MG/2.5 ML UDC PO SCH ×2 (09:36→12:46)
[2019-08-21] MEDS: Acetaminophen 325 MG TABLET PO PRN (09:37)
[2019-08-21 11:02] VITALS: BP 148/80
[2019-08-21] MEDS ORDERED: amLODIPine 5 MG TABLET PO SCH (11:15)
== END 2019-08-21 15:35 | disposition home health service (06) | DRG 872 ==
LOC: EMEROOARM 14:09 → 3ANU 14:09 → SUATTDRO 17:40 → 3ANU 18:23
PROVIDERS: ADMIT Internal Medicine; ATTEND Internal Medicine

== ENCOUNTER 2019-10-07 16:13 | Inpatient (IN) ==
[2019-10-07] MEDS ORDERED: 0.9 % Sodium Chloride 1,000 ML IVC ONE (16:33)
[2019-10-07] MEDS ORDERED: Ondansetron 4 MG/2 ML VIAL IVP ONE (16:33)
[2019-10-07] MEDS ORDERED: Isovue-370 500 ML BOTTLE IVP ONE (17:12)
[2019-10-07 17:33] LABS: Hematocrit 39.9 % (35.3-44.9); Hemoglobin 12.5 g/dL (11.5-15.4); Mean Corpuscular HGB Conc 31.3 g/dL (31.6-35.5); Mean Corpuscular Hemoglobin 26.9 pg (28.0-33.3); Mean Platelet Volume 10.7 fL (9.4-12.4); Platelet Count 306 K/mcL (140-400); Red Blood Count 4.64 M/mcL (3.82-4.97); Red Cell Distribution Width 13.9 % (11.5-14.5); White Blood Count 14.7 K/mcL (4.3-11.1)
[2019-10-07 17:59] LABS: Basophils # 0.2 K/mcL (0.0-0.2); Eosinophils # 0.2 K/mcL (0.0-0.6); Lymphocytes # 0.6 K/mcL (0.6-4.6); Monocytes # 0.9 K/mcL (0.0-1.3); Neutrophils # 12.9 K/mcL (1.6-8.9); Platelet Estimate Normal (Normal)
[2019-10-07 18:04] LABS: Bilirubin,Urine Negative (Negative); Blood,Urine Trace (Negative); Clarity,Urine Clear (Clear); Color,Urine Yellow (Yellow); Glucose,Urine (UA) Normal (Normal); Hyaline Casts,Urine Few per lpf (None Seen); Ketones,Urine Negative (Negative); Leukocyte Esterase,Urine Negative (Negative); Mucus,Urine Few per lpf (None-Few); Nitrite,Urine Negative (Negative); Protein,Urine 70 mg/dL (Neg-Trace); Squamous Epithelial Cell,Urine Moderate per hpf (None-Few); Urobilinogen,Urine Normal (Normal)
[2019-10-07 18:06] LABS: Alanine Aminotransferase 10 Units/L (7-52); Albumin 4.1 g/dL (3.5-5.7); Albumin/Globulin Ratio 1.3 (1.1-2.2); Alkaline Phosphatase 91 Units/L (34-104); Aspartate Amino Transferase 17 Units/L (13-39); BUN/Creatinine Ratio 18 (6-26); Bilirubin,Direct 0.1 mg/dL (0.0-0.2); Bilirubin,Indirect 0.4 mg/dL (0.0-1.0); Bilirubin,Total 0.5 mg/dL (0.3-1.0); Blood Urea Nitrogen 17 mg/dL (8-23); Calcium 9.2 mg/dL (8.6-10.3); Carbon Dioxide 22 mEq/L (23-29); Chloride 100 mEq/L (98-107); Globulin 3.1 g/dL (2.4-3.5); Glucose 80 mg/dL (70-105); Lipase 10 Units/L (11-82); Osmolality,Calculated 279 (280-300); Potassium 4.1 mEq/L (3.5-5.1); Sodium 134 mEq/L (136-145); Total Protein 7.2 g/dL (6.4-8.9); eGFR For African Americans > 60 (> 60); eGFR For Non-African Americans 59 (> 60)
[2019-10-07] MEDS ORDERED: 0.9 % Sodium Chloride 1,000 ML IV ONE (18:29)
[2019-10-07] MEDS ORDERED: Piperacillin/Tazobactam 3.375 GM in 0.9 % Sodium Chloride Mini Bag 100 ML IVPB ONE (18:40)
[2019-10-07 19:27] LABS: Adenovirus F 40/41 PCR Not detected (Not detect); Astrovirus PCR Not detected (Not detect); C.difficile Toxin A/B Gene PCR DETECTED (Not detect); Campylobacter by PCR Not detected (Not detect); Cryptosporidium by PCR Not detected (Not detect); Cyclospora cayetanensis PCR Not detected (Not detect); E. coli O157 by PCR Not detected (Not detect); Entamoeba histolytica PCR Not detected (Not detect); Enteroaggregative E.coli(EAEC) Not detected (Not detect); Enteropathogenic E.coli(EPEC) Not detected (Not detect); Enterotoxigenic E.coli (ETEC) Not detected (Not detect); Giardia lamblia PCR Not detected (Not detect); Norovirus GI/GII PCR Not detected (Not detect); Plesiomonas shigelloides PCR Not detected (Not detect); Rotavirus A PCR Not detected (Not detect); Salmonella PCR Not detected (Not detect); Sapovirus PCR Not detected (Not detect); Shig/EnteroinvasiveE coli EIEC Not detected (Not detect); Shigalike tox-prod E coli STEC Not detected (Not detect); Vibrio PCR Not detected (Not detect); Vibrio cholerae PCR Not detected (Not detect); Yersinia enterocolitica PCR Not detected (Not detect)
[2019-10-07] MEDS ORDERED: metroNIDAZOLE 500 MG TABLET PO ONE (19:27)
[2019-10-07] MEDS ORDERED: Naloxone 0.4 MG/ML INJ IVP PRN (19:31)
[2019-10-07] MEDS: Vancomycin Oral Soln 125 MG/2.5 ML UDC PO SCH (23:12)
[2019-10-08] MEDS ORDERED: Acetaminophen IV 500 MG/50 ML BAG IVPB ONE (02:40)
[2019-10-08] MEDS ORDERED: Acetaminophen IV 500 MG/50 ML BAG IVPB PRN (02:46)
[2019-10-08] MEDS ORDERED: Ondansetron 4 MG/2 ML VIAL IVP PRN (02:46)
[2019-10-08 03:54] LABS: Basophils # 0.1 K/mcL (0.0-0.2); Basophils % 0.8 %; Eosinophils % 0.1 %; Hematocrit 41.2 % (35.3-44.9); Hemoglobin 12.2 g/dL (11.5-15.4); Immature Granulocytes % 0.4 % (0-4); Lymphocytes # 0.7 K/mcL (0.6-4.6); Lymphocytes % 4.8 %; Mean Corpuscular HGB Conc 29.6 g/dL (31.6-35.5); Mean Corpuscular Volume 91.2 fL (83.0-100.0); Mean Platelet Volume 10.6 fL (9.4-12.4); Monocytes % 4.8 %; Platelet Count 268 K/mcL (140-400); Red Blood Count 4.52 M/mcL (3.82-4.97); Red Cell Distribution Width 13.9 % (11.5-14.5); Segmented Neutrophils % 89.1 %; White Blood Count 13.5 K/mcL (4.3-11.1)
[2019-10-08 03:57] LABS: Monocytes # 0.7 K/mcL (0.0-1.3)
[2019-10-08 04:07] LABS: BUN/Creatinine Ratio 20 (6-26); Blood Urea Nitrogen 17 mg/dL (8-23); Calcium 7.7 mg/dL (8.6-10.3); Carbon Dioxide 14 mEq/L (23-29); Chloride 105 mEq/L (98-107); Glucose 112 mg/dL (70-105); Osmolality,Calculated 280 (280-300); Potassium 3.5 mEq/L (3.5-5.1); Sodium 134 mEq/L (136-145); eGFR For African Americans > 60 (> 60); eGFR For Non-African Americans > 60 (> 60)
[2019-10-08 04:44] LABS: Platelet Estimate Normal (Normal)
[2019-10-08] MEDS ORDERED: 0.9 % Sodium Chloride 1,000 ML IVC ONE (07:58)
[2019-10-08] MEDS ORDERED: Ringers Solution, Lactated 1,000 ML IVC ONE (08:04)
[2019-10-08] MEDS: hydrOXYzine pamoate 25 MG CAPSULE PO SCH ×2 (08:40→20:34)
[2019-10-08] MEDS: Aspirin Enteric Coated 81 MG Tablet PO SCH (08:40)
[2019-10-08] MEDS: Vancomycin Oral Soln 125 MG/2.5 ML UDC PO SCH ×4 (08:41→20:34)
[2019-10-08] MEDS: Ondansetron 4 MG/2 ML VIAL IVP PRN ×2 (09:49→20:37)
[2019-10-08] MEDS: *HR* Promethazine 25 MG/ML VIAL IVP PRN (12:02)
[2019-10-08] MEDS ORDERED: Ringers Solution, Lactated 1,000 ML IVC SCH (12:45)
[2019-10-08] MEDS: *HR* Heparin 5,000 UNIT/ML VIAL SQ SCH ×2 (17:29→17:30)
[2019-10-08] MEDS: Ringers Solution, Lactated 1,000 ML IVC SCH (18:46)
[2019-10-09] MEDS: Ringers Solution, Lactated 1,000 ML IVC SCH (01:42)
[2019-10-09 02:58] LABS: Basophils # 0.1 K/mcL (0.0-0.2); Basophils % 0.5 %; Eosinophils % 0.1 %; Hematocrit 36.2 % (35.3-44.9); Hemoglobin 11.8 g/dL (11.5-15.4); Immature Granulocytes % 0.7 % (0-4); Lymphocytes # 0.9 K/mcL (0.6-4.6); Lymphocytes % 4.8 %; Mean Corpuscular HGB Conc 32.6 g/dL (31.6-35.5); Mean Corpuscular Hemoglobin 27.1 pg (28.0-33.3); Mean Platelet Volume 11.4 fL (9.4-12.4); Monocytes # 0.9 K/mcL (0.0-1.3); Neutrophils # 16.5 K/mcL (1.6-8.9); Nucleated Red Blood Cells 0.1 /100 WBC (0); Platelet Count 298 K/mcL (140-400); Red Blood Count 4.35 M/mcL (3.82-4.97); Red Cell Distribution Width 14.1 % (11.5-14.5); Segmented Neutrophils % 88.9 %; White Blood Count 18.5 K/mcL (4.3-11.1)
[2019-10-09 03:05] LABS: Mean Corpuscular Volume 83.2 fL (83.0-100.0)
[2019-10-09 03:13] LABS: Calcium 7.7 mg/dL (8.6-10.3); Potassium 3.5 mEq/L (3.5-5.1)
[2019-10-09 03:27] LABS: Platelet Estimate Normal (Normal); Toxic Granulation Present (Not Present)
[2019-10-09] MEDS: *HR* Promethazine 25 MG/ML VIAL IVP PRN ×2 (04:03→12:41)
[2019-10-09] MEDS: *HR* Heparin 5,000 UNIT/ML VIAL SQ SCH ×2 (05:47→17:00)
[2019-10-09] MEDS ORDERED: Ringers Solution, Lactated 1,000 ML IVC ONE (07:03)
[2019-10-09] MEDS: Aspirin Enteric Coated 81 MG Tablet PO SCH (07:52)
[2019-10-09] MEDS: hydrOXYzine pamoate 25 MG CAPSULE PO SCH ×2 (07:53→20:52)
[2019-10-09] MEDS: Vancomycin Oral Soln 125 MG/2.5 ML UDC PO SCH ×4 (07:53→20:53)
[2019-10-09] MEDS: Acetaminophen 325 MG TABLET PO PRN (12:03)
[2019-10-09] MEDS: Sodium Bicarbonate 75 MEQ in 0.45 % Sodium Chloride 1,000 ML IVC SCH (12:04)
[2019-10-09] MEDS ORDERED: Isovue-370 500 ML BOTTLE PO ONE (12:45)
[2019-10-09] MEDS ORDERED: Vancomycin Oral Soln 125 MG/2.5 ML UDC PO ONE (13:30)
[2019-10-09] MEDS: MetroNIDAZOLE 500 MG/100 ML 500 MG/100 ML BAG IVPB SCH (15:44)
[2019-10-09 23:51] LABS: Sodium, Urine 18.6 mEq/L
[2019-10-10] MEDS: MetroNIDAZOLE 500 MG/100 ML 500 MG/100 ML BAG IVPB SCH ×4 (00:07→22:57)
[2019-10-10] MEDS: Sodium Bicarbonate 75 MEQ in 0.45 % Sodium Chloride 1,000 ML IVC SCH (01:10)
[2019-10-10] MEDS: Acetaminophen 325 MG TABLET PO PRN ×2 (04:19→22:00)
[2019-10-10] MEDS: Ondansetron 4 MG/2 ML VIAL IVP PRN (04:22)
[2019-10-10] MEDS: *HR* Heparin 5,000 UNIT/ML VIAL SQ SCH ×2 (05:22→16:53)
[2019-10-10 07:28] LABS: Hematocrit 32.2 % (35.3-44.9); Hemoglobin 10.9 g/dL (11.5-15.4); Mean Corpuscular HGB Conc 33.9 g/dL (31.6-35.5); Mean Corpuscular Hemoglobin 27.9 pg (28.0-33.3); Mean Corpuscular Volume 82.4 fL (83.0-100.0); Platelet Count 244 K/mcL (140-400); Red Blood Count 3.91 M/mcL (3.82-4.97); Red Cell Distribution Width 14.4 % (11.5-14.5); White Blood Count 18.8 K/mcL (4.3-11.1)
[2019-10-10 07:47] LABS: Calcium 7.8 mg/dL (8.6-10.3); Potassium 3.4 mEq/L (3.5-5.1)
[2019-10-10] MEDS: Aspirin Enteric Coated 81 MG Tablet PO SCH (07:59)
[2019-10-10] MEDS: hydrOXYzine pamoate 25 MG CAPSULE PO SCH ×2 (07:59→20:06)
[2019-10-10] MEDS: Vancomycin Oral Soln 125 MG/2.5 ML UDC PO SCH ×4 (08:07→20:06)
[2019-10-10 10:20] LABS: Lymphocytes # 0.4 K/mcL (0.6-4.6); Monocytes # 1.5 K/mcL (0.0-1.3); Neutrophils # 16.9 K/mcL (1.6-8.9); Platelet Estimate Normal (Normal)
[2019-10-10 10:21] LABS: Anisocytosis 1+ (Not Present)
[2019-10-10] MEDS: Ringers Solution, Lactated 1,000 ML IVC SCH (12:33)
[2019-10-11 00:39] LABS: Hematocrit 33.8 % (35.3-44.9); Hemoglobin 10.9 g/dL (11.5-15.4); Mean Corpuscular HGB Conc 32.2 g/dL (31.6-35.5); Mean Corpuscular Hemoglobin 27.1 pg (28.0-33.3); Mean Corpuscular Volume 84.1 fL (83.0-100.0); Mean Platelet Volume 11.1 fL (9.4-12.4); Platelet Count 242 K/mcL (140-400); Red Blood Count 4.02 M/mcL (3.82-4.97); Red Cell Distribution Width 14.5 % (11.5-14.5); White Blood Count 21.6 K/mcL (4.3-11.1)
[2019-10-11 00:59] LABS: Alanine Aminotransferase 25 Units/L (7-52); Albumin 2.4 g/dL (3.5-5.7); Alkaline Phosphatase 80 Units/L (34-104); Aspartate Amino Transferase 35 Units/L (13-39); BUN/Creatinine Ratio 36 (6-26); Bilirubin,Direct 0.1 mg/dL (0.0-0.2); Bilirubin,Indirect 0.2 mg/dL (0.0-1.0); Bilirubin,Total 0.3 mg/dL (0.3-1.0); Blood Urea Nitrogen 37 mg/dL (8-23); Calcium 7.9 mg/dL (8.6-10.3); Carbon Dioxide 24 mEq/L (23-29); Chloride 104 mEq/L (98-107); Globulin 2.3 g/dL (2.4-3.5); Glucose 73 mg/dL (70-105); Magnesium 1.8 mg/dL (1.6-2.6); Osmolality,Calculated 287 (280-300); Phosphorous 1.7 mg/dL (2.7-4.5); Sodium 135 mEq/L (136-145); Total Protein 4.7 g/dL (6.4-8.9); eGFR For African Americans > 60 (> 60); eGFR For Non-African Americans 53 (> 60)
[2019-10-11] MEDS: Ringers Solution, Lactated 1,000 ML IVC SCH (01:10)
[2019-10-11] MEDS: *HR* Heparin 5,000 UNIT/ML VIAL SQ SCH ×2 (05:28→18:29)
[2019-10-11] MEDS: hydrOXYzine pamoate 25 MG CAPSULE PO SCH ×2 (09:07→20:00)
[2019-10-11] MEDS: Aspirin Enteric Coated 81 MG Tablet PO SCH (09:07)
[2019-10-11] MEDS: Vancomycin Oral Soln 125 MG/2.5 ML UDC PO SCH ×4 (09:07→20:00)
[2019-10-11] MEDS: MetroNIDAZOLE 500 MG/100 ML 500 MG/100 ML BAG IVPB SCH ×3 (09:59→23:17)
[2019-10-11] MEDS: Acetaminophen 325 MG TABLET PO PRN (20:00)
[2019-10-12] MEDS: *HR* Heparin 5,000 UNIT/ML VIAL SQ SCH ×2 (05:36→16:47)
[2019-10-12 06:53] LABS: BUN/Creatinine Ratio 32 (6-26); Blood Urea Nitrogen 28 mg/dL (8-23); Calcium 8.1 mg/dL (8.6-10.3); Carbon Dioxide 27 mEq/L (23-29); Chloride 102 mEq/L (98-107); Glucose 84 mg/dL (70-105); Hematocrit 37.1 % (35.3-44.9); Hemoglobin 11.7 g/dL (11.5-15.4); Magnesium 1.9 mg/dL (1.6-2.6); Mean Corpuscular HGB Conc 31.5 g/dL (31.6-35.5); Mean Corpuscular Hemoglobin 26.5 pg (28.0-33.3); Mean Corpuscular Volume 83.9 fL (83.0-100.0); Mean Platelet Volume 11.2 fL (9.4-12.4); Osmolality,Calculated 287 (280-300); Phosphorous 2.8 mg/dL (2.7-4.5); Platelet Count 308 K/mcL (140-400); Potassium 3.3 mEq/L (3.5-5.1); Red Blood Count 4.42 M/mcL (3.82-4.97); Red Cell Distribution Width 14.8 % (11.5-14.5); Sodium 136 mEq/L (136-145); White Blood Count 21.1 K/mcL (4.3-11.1); eGFR For African Americans > 60 (> 60); eGFR For Non-African Americans > 60 (> 60)
[2019-10-12] MEDS: Aspirin Enteric Coated 81 MG Tablet PO SCH (09:50)
[2019-10-12] MEDS: Vancomycin Oral Soln 125 MG/2.5 ML UDC PO SCH ×4 (09:51→21:30)
[2019-10-12] MEDS: hydrOXYzine pamoate 25 MG CAPSULE PO SCH ×2 (09:51→21:30)
[2019-10-12] MEDS: MetroNIDAZOLE 500 MG/100 ML 500 MG/100 ML BAG IVPB SCH ×3 (09:52→23:43)
[2019-10-12] MEDS: Acetaminophen 325 MG TABLET PO PRN (18:23)
[2019-10-13] MEDS: *HR* Heparin 5,000 UNIT/ML VIAL SQ SCH ×2 (05:33→17:34)
[2019-10-13 06:38] LABS: Hematocrit 33.8 % (35.3-44.9); Hemoglobin 11.1 g/dL (11.5-15.4); Mean Corpuscular HGB Conc 32.8 g/dL (31.6-35.5); Mean Corpuscular Hemoglobin 27.8 pg (28.0-33.3); Mean Corpuscular Volume 84.5 fL (83.0-100.0); Mean Platelet Volume 10.3 fL (9.4-12.4); Platelet Count 310 K/mcL (140-400); Red Cell Distribution Width 14.7 % (11.5-14.5); White Blood Count 22.6 K/mcL (4.3-11.1)
[2019-10-13 06:56] LABS: BUN/Creatinine Ratio 31 (6-26); Blood Urea Nitrogen 22 mg/dL (8-23); Calcium 7.9 mg/dL (8.6-10.3); Carbon Dioxide 23 mEq/L (23-29); Chloride 103 mEq/L (98-107); Glucose 91 mg/dL (70-105); Magnesium 1.5 mg/dL (1.6-2.6); Osmolality,Calculated 281 (280-300); Potassium 3.7 mEq/L (3.5-5.1); Sodium 134 mEq/L (136-145); eGFR For African Americans > 60 (> 60); eGFR For Non-African Americans > 60 (> 60)
[2019-10-13] MEDS: Aspirin Enteric Coated 81 MG Tablet PO SCH (07:53)
[2019-10-13] MEDS: Acetaminophen 325 MG TABLET PO PRN ×2 (07:54→21:15)
[2019-10-13] MEDS: Vancomycin Oral Soln 125 MG/2.5 ML UDC PO SCH ×4 (07:54→21:16)
[2019-10-13] MEDS: MetroNIDAZOLE 500 MG/100 ML 500 MG/100 ML BAG IVPB SCH ×3 (07:55→23:21)
[2019-10-13] MEDS: hydrOXYzine pamoate 25 MG CAPSULE PO SCH ×2 (08:31→21:16)
[2019-10-13] MEDS: amLODIPine 5 MG TABLET PO SCH (12:00)
[2019-10-13 12:12] LABS: Basophils # 0.2 K/mcL (0.0-0.2); Basophils % 0.7 %; Eosinophils % 4.6 %; Hemoglobin 11.4 g/dL (11.5-15.4); Immature Granulocytes % 3.8 % (0-4); Lymphocytes # 2.2 K/mcL (0.6-4.6); Lymphocytes % 10.2 %; Mean Corpuscular HGB Conc 32.6 g/dL (31.6-35.5); Mean Corpuscular Hemoglobin 27.7 pg (28.0-33.3); Mean Platelet Volume 10.2 fL (9.4-12.4); Monocytes # 1.4 K/mcL (0.0-1.3); Monocytes % 6.3 %; Neutrophils # 16.2 K/mcL (1.6-8.9); Platelet Count 339 K/mcL (140-400); Red Blood Count 4.12 M/mcL (3.82-4.97); Red Cell Distribution Width 14.8 % (11.5-14.5); Segmented Neutrophils % 74.4 %; White Blood Count 21.8 K/mcL (4.3-11.1)
[2019-10-13 13:57] LABS: Basophils # 0.1 K/mcL (0.0-0.2); Basophils % 0.6 %; Eosinophils % 4.4 %; Immature Granulocytes % 3.4 % (0-4); Lymphocytes # 2.2 K/mcL (0.6-4.6); Lymphocytes % 9.7 %; Monocytes # 1.4 K/mcL (0.0-1.3); Nucleated Red Blood Cells 0.1 /100 WBC (0); Segmented Neutrophils % 75.9 %
[2019-10-14] MEDS: *HR* Heparin 5,000 UNIT/ML VIAL SQ SCH ×2 (06:03→17:26)
[2019-10-14 07:13] LABS: Basophils # 0.2 K/mcL (0.0-0.2); Basophils % 0.8 %; Hematocrit 35.7 % (35.3-44.9); Hemoglobin 11.5 g/dL (11.5-15.4); Immature Granulocytes % 3.9 % (0-4); Lymphocytes # 2.3 K/mcL (0.6-4.6); Lymphocytes % 11.1 %; Mean Corpuscular HGB Conc 32.2 g/dL (31.6-35.5); Mean Corpuscular Hemoglobin 27.1 pg (28.0-33.3); Mean Platelet Volume 10.2 fL (9.4-12.4); Monocytes # 1.2 K/mcL (0.0-1.3); Neutrophils # 15.1 K/mcL (1.6-8.9); Platelet Count 397 K/mcL (140-400); Red Blood Count 4.25 M/mcL (3.82-4.97); Segmented Neutrophils % 73.2 %; White Blood Count 20.6 K/mcL (4.3-11.1)
[2019-10-14 07:34] LABS: BUN/Creatinine Ratio 28 (6-26); Blood Urea Nitrogen 17 mg/dL (8-23); Calcium 8.1 mg/dL (8.6-10.3); Carbon Dioxide 25 mEq/L (23-29); Chloride 103 mEq/L (98-107); Glucose 85 mg/dL (70-105); Magnesium 1.5 mg/dL (1.6-2.6); Osmolality,Calculated 281 (280-300); Potassium 3.6 mEq/L (3.5-5.1); Sodium 135 mEq/L (136-145); eGFR For African Americans > 60 (> 60); eGFR For Non-African Americans > 60 (> 60)
[2019-10-14] MEDS: hydrOXYzine pamoate 25 MG CAPSULE PO SCH ×2 (07:37→21:29)
[2019-10-14] MEDS: amLODIPine 5 MG TABLET PO SCH (07:38)
[2019-10-14] MEDS: Aspirin Enteric Coated 81 MG Tablet PO SCH (07:38)
[2019-10-14] MEDS: Vancomycin Oral Soln 125 MG/2.5 ML UDC PO SCH ×4 (07:40→21:30)
[2019-10-14] MEDS: MetroNIDAZOLE 500 MG/100 ML 500 MG/100 ML BAG IVPB SCH (07:41)
[2019-10-14] MEDS: Acetaminophen 325 MG TABLET PO PRN (17:25)
[2019-10-14] MEDS: lisinopriL 10 MG TABLET PO SCH (17:25)
[2019-10-15 01:19] LABS: Basophils # 0.2 K/mcL (0.0-0.2); Basophils % 0.8 %; Eosinophils # 0.9 K/mcL (0.0-0.6); Eosinophils % 4.2 %; Hematocrit 34.1 % (35.3-44.9); Immature Granulocytes % 4.6 % (0-4); Lymphocytes # 2.8 K/mcL (0.6-4.6); Lymphocytes % 13.4 %; Mean Corpuscular HGB Conc 32.3 g/dL (31.6-35.5); Mean Corpuscular Volume 83.6 fL (83.0-100.0); Mean Platelet Volume 9.7 fL (9.4-12.4); Monocytes # 1.3 K/mcL (0.0-1.3); Monocytes % 6.5 %; Neutrophils # 14.7 K/mcL (1.6-8.9); Nucleated Red Blood Cells 0.1 /100 WBC (0); Platelet Count 468 K/mcL (140-400); Red Blood Count 4.08 M/mcL (3.82-4.97); Red Cell Distribution Width 14.8 % (11.5-14.5); Segmented Neutrophils % 70.5 %; White Blood Count 20.8 K/mcL (4.3-11.1)
[2019-10-15 01:40] LABS: BUN/Creatinine Ratio 26 (6-26); Blood Urea Nitrogen 15 mg/dL (8-23); Calcium 7.6 mg/dL (8.6-10.3); Carbon Dioxide 23 mEq/L (23-29); Chloride 104 mEq/L (98-107); Glucose 97 mg/dL (70-105); Magnesium 1.4 mg/dL (1.6-2.6); Osmolality,Calculated 281 (280-300); Potassium 3.9 mEq/L (3.5-5.1); Sodium 135 mEq/L (136-145); eGFR For African Americans > 60 (> 60); eGFR For Non-African Americans > 60 (> 60)
[2019-10-15] MEDS: *HR* Heparin 5,000 UNIT/ML VIAL SQ SCH ×2 (06:25→17:18)
[2019-10-15] MEDS: Aspirin Enteric Coated 81 MG Tablet PO SCH (08:30)
[2019-10-15] MEDS: lisinopriL 10 MG TABLET PO SCH (08:30)
[2019-10-15] MEDS: amLODIPine 5 MG TABLET PO SCH (08:31)
[2019-10-15] MEDS: Vancomycin Oral Soln 125 MG/2.5 ML UDC PO SCH ×4 (08:31→20:52)
[2019-10-15] MEDS: hydrOXYzine pamoate 25 MG CAPSULE PO SCH ×2 (08:31→20:40)
[2019-10-15] MEDS: Acetaminophen 325 MG TABLET PO PRN (20:40)
[2019-10-16] MEDS: *HR* Heparin 5,000 UNIT/ML VIAL SQ SCH (05:43)
[2019-10-16 06:37] LABS: Basophils # 0.1 K/mcL (0.0-0.2); Basophils % 0.7 %; Eosinophils # 0.8 K/mcL (0.0-0.6); Hematocrit 33.6 % (35.3-44.9); Hemoglobin 10.9 g/dL (11.5-15.4); Immature Granulocytes % 3.5 % (0-4); Lymphocytes # 2.6 K/mcL (0.6-4.6); Lymphocytes % 12.9 %; Mean Corpuscular HGB Conc 32.4 g/dL (31.6-35.5); Mean Corpuscular Hemoglobin 27.3 pg (28.0-33.3); Mean Platelet Volume 9.8 fL (9.4-12.4); Monocytes # 1.3 K/mcL (0.0-1.3); Monocytes % 6.4 %; Neutrophils # 14.7 K/mcL (1.6-8.9); Platelet Count 539 K/mcL (140-400); Red Cell Distribution Width 14.9 % (11.5-14.5); Segmented Neutrophils % 72.5 %; White Blood Count 20.2 K/mcL (4.3-11.1)
[2019-10-16] MEDS: hydrOXYzine pamoate 25 MG CAPSULE PO SCH (10:09)
[2019-10-16] MEDS: Vancomycin Oral Soln 125 MG/2.5 ML UDC PO SCH ×2 (10:09→14:07)
[2019-10-16] MEDS: lisinopriL 10 MG TABLET PO SCH (10:09)
[2019-10-16] MEDS: amLODIPine 5 MG TABLET PO SCH (10:09)
[2019-10-16] MEDS: Aspirin Enteric Coated 81 MG Tablet PO SCH (10:09)
[2019-10-16 10:47] VITALS: BP 138/83
== END 2019-10-16 14:23 | disposition home health service (06) | DRG 872 ==
LOC: EMEROOARM 16:13 → 3ANU 16:13 → SUATTDRO 19:47 → 3ANU 20:29 → SUATTDRO 10-08 13:19
PROVIDERS: ADMIT Internal Medicine; ATTEND Internal Medicine

== ENCOUNTER 2020-02-23 09:15 | Inpatient (IN) ==
[2020-02-23] MEDS ORDERED: Isovue-370 500 ML BOTTLE IVP ONE (09:26)
[2020-02-23 09:47] LABS: Hematocrit 38.7 % (35.3-44.9); Hemoglobin 12.5 g/dL (11.5-15.4); Mean Corpuscular HGB Conc 32.3 g/dL (31.6-35.5); Mean Corpuscular Hemoglobin 27.3 pg (28.0-33.3); Mean Corpuscular Volume 84.5 fL (83.0-100.0); Mean Platelet Volume 9.2 fL (9.4-12.4); Platelet Count 354 K/mcL (140-400); Red Blood Count 4.58 M/mcL (3.82-4.97); Red Cell Distribution Width 13.9 % (11.5-14.5); White Blood Count 8.1 K/mcL (4.3-11.1)
[2020-02-23 09:57] LABS: INR 0.9; Prothrombin Time 10.8 Seconds (9.4-12.1)
[2020-02-23 10:00] LABS: Activated Partial Thrombo Time 31.4 Seconds (26.0-36.0)
[2020-02-23 10:03] LABS: BUN/Creatinine Ratio 18 (6-26); Blood Urea Nitrogen 18 mg/dL (8-23); Calcium 9.8 mg/dL (8.6-10.3); Carbon Dioxide 28 mEq/L (23-29); Chloride 104 mEq/L (98-107); Glucose 120 mg/dL (70-105); Osmolality,Calculated 291 (280-300); Sodium 139 mEq/L (136-145); eGFR For African Americans > 60 (> 60); eGFR For Non-African Americans 56 (> 60)
[2020-02-23 10:05] LABS: Troponin I < 0.03 ng/mL (< 0.04)
[2020-02-23] MEDS ORDERED: Aspirin 81 MG TAB.CHEW PO STA (10:23)
[2020-02-23] MEDS ORDERED: Mag Hydrox/Al Hydrox/Simeth 30 ML UDC PO PRN (11:28)
[2020-02-23] MEDS ORDERED: Ondansetron ODT 4 MG TAB.RAPDIS SL PRN (11:28)
[2020-02-23] MEDS ORDERED: Perflutren Lipid Microsphere 1.3 ML in 0.9 % Sodium Chloride 8.7 ML IVP PRN (11:28)
[2020-02-23] MEDS ORDERED: Naloxone 0.4 MG/ML INJ IVP PRN (11:28)
[2020-02-23] MEDS ORDERED: Acetaminophen 325 MG TABLET PO ONE (17:40)
[2020-02-23] MEDS: *HR* Heparin 5,000 UNIT/ML VIAL SQ SCH (18:10)
[2020-02-24] MEDS: *HR* Heparin 5,000 UNIT/ML VIAL SQ SCH (05:22)
[2020-02-24 05:26] LABS: Hematocrit 38.2 % (35.3-44.9); Mean Corpuscular HGB Conc 31.4 g/dL (31.6-35.5); Mean Corpuscular Hemoglobin 26.9 pg (28.0-33.3); Mean Corpuscular Volume 85.7 fL (83.0-100.0); Platelet Count 347 K/mcL (140-400); Red Blood Count 4.46 M/mcL (3.82-4.97); Red Cell Distribution Width 14.2 % (11.5-14.5); White Blood Count 11.2 K/mcL (4.3-11.1)
[2020-02-24 05:35] LABS: Prothrombin Time 11.7 Seconds (9.4-12.1)
[2020-02-24 05:40] LABS: Alanine Aminotransferase 9 Units/L (7-52); Albumin 4.3 g/dL (3.5-5.7); Albumin/Globulin Ratio 1.5 (1.1-2.2); Alkaline Phosphatase 95 Units/L (34-104); Aspartate Amino Transferase 12 Units/L (13-39); BUN/Creatinine Ratio 20 (6-26); Bilirubin,Total 0.3 mg/dL (0.3-1.0); Blood Urea Nitrogen 16 mg/dL (8-23); Calcium 9.8 mg/dL (8.6-10.3); Carbon Dioxide 25 mEq/L (23-29); Chloride 106 mEq/L (98-107); Chol/HDL Ratio 4.1 (0-4.9); Cholesterol 192 mg/dL (< 200); Globulin 2.8 g/dL (2.4-3.5); Glucose 108 mg/dL (70-105); HDL Cholesterol 47 mg/dL (40-59); LDL Cholesterol,Calculated 106 mg/dL (< 100); Osmolality,Calculated 292 (280-300); Potassium 3.9 mEq/L (3.5-5.1); Sodium 140 mEq/L (136-145); Total Protein 7.1 g/dL (6.4-8.9); Triglycerides 194 mg/dL (< 150); eGFR For African Americans > 60 (> 60); eGFR For Non-African Americans > 60 (> 60)
[2020-02-24] MEDS ORDERED: Aspirin Enteric Coated 81 MG Tablet PO SCH (09:00)
[2020-02-24] MEDS ORDERED: Acetaminophen 325 MG TABLET PO ONE (12:21)
[2020-02-24] MEDS ORDERED: QUEtiapine Fumarate 25 MG TABLET PO PRN (13:47)
[2020-02-24 14:58] VITALS: BP 141/94
[2020-02-24 22:33] LABS: Estimated Average Glucose 137 mg/dl
[2020-02-25] MEDS ORDERED: hydrOXYzine pamoate 25 MG CAPSULE PO SCH (09:00)
[2020-02-25] MEDS ORDERED: lisinopriL 10 MG TABLET PO SCH (09:00)
== END 2020-02-24 18:16 | DRG 65 ==
LOC: EMEROOARM 09:15 → 3BNU 09:15 → SUATTDRO 12:53 → 3BNU 14:04
PROVIDERS: ADMIT Family Medicine; ATTEND Internal Medicine